=== PATIENT | male | born 1990 | race Caucasian/White ===

== ENCOUNTER 2023-09-16 08:00 | Outpatient (RCR) | payer BC, SELFPAY | END 2024-01-14 23:59 | disposition home or self-care (01) | PROVIDERS: PCP Family Medicine; Visit Provider Orthopaedic Surgery Sports Medicine | DX: T79.A22A Traumatic compartment syndrome of left lower extremity, initial encounter (principal); T79.A21A Traumatic compartment syndrome of right lower extremity, initial encounter; Z51.89 Encounter for other specified aftercare | CPT/HCPCS: 97110; 97140; 97162 ==

== ENCOUNTER 2023-10-14 08:00 | Outpatient (RCR) | payer BC, SELFPAY | END 2024-02-11 23:59 | disposition home or self-care (01) | PROVIDERS: PCP Family Medicine; Visit Provider Student in an Organized Health Care Education/Training Program | DX: M77.11 Lateral epicondylitis, right elbow (principal); R52 Pain, unspecified; R53.1 Weakness; Z74.09 Other reduced mobility; Z51.89 Encounter for other specified aftercare | CPT/HCPCS: 97033; 97035; 97110; 97140; 97162; 97165; X5282 ==